=== PATIENT | male | born 1955 | race African-American/Black ===

== ENCOUNTER 2017-08-12 07:06 | Emergency (ER) | payer OTHER ==
[2017-08-12 07:26] VITALS: BP 131/82; PULSE 82; TEMP 98.5; BMI 27.3
--- NOTE | 2017-08-12 08:59 | PDOC ---
History of Present Illness - General Chief Complaint: Cold Symptoms Stated Complaint: COUGHING Time Seen by Provider: 08/12/17 08:26 History Source: Patient Exam Limitations: No Limitations - History of Present Illness Initial Comments: 08/12/17 09:29 62 yr male history of HTN, high cholesterol, kidney stones presents with cough body aches and left flank pain for 3 days. no vomiting or diarrhea pt took nyquil this AM Timing/Duration: reports: getting worse Severity: reports: moderate Past History - Past Medical History Allergies/Adverse Reactions: Allergies Allergy/AdvReac Type Severity Reaction Status Date / Time No Known Allergies Allergy Verified 08/12/17 07:23 Home Medications: Ambulatory Orders Acetaminophen [Tylenol Extra Strength] 800 mg PO PRN PRN 07/03/17 Amlodipine Besylate 10 mg PO DAILY 07/03/17 Cranberry 400 mg PO DAILY 07/03/17 Garlic 1 each PO DAILY 07/03/17 Loratadine [Claritin] 10 mg PO DAILY 07/03/17 Simvastatin 10 mg PO DAILY 07/03/17 COPD: No HTN: Yes Hypercholesterolemia: Yes Kidney Stones: Yes Other medical history: bph - Suicide/Smoking/Psychosocial Hx Smoking Status: No Smoking History: Never smoked Have you smoked in the past 12 months: No Number of Cigarettes Smoked Daily: 0 Information on smoking cessation initiated: No Hx Alcohol Use: No Drug/Substance Use Hx: Yes ([place]) Substance Use Type: None Respiratory Specific PMHX - Complaint Specific PMHX Angina: No Bronchitis: No Pneumonia: No Pulmonary Embolus: No TB (Tuberculosis): No Other History: non smoker Review of Systems - Review of Systems Able to Perform ROS?: Yes Is the patient limited Pakistani proficient: No Constitutional: Yes: Malaise. No: Symptoms Reported HEENTM: No: Symptoms Reported Respiratory: Yes: Cough *Physical Exam - Vital Signs Last Vital Signs Temp Pulse Resp BP Pulse Ox 98.5 F 82 18 131/82 100 08/12/17 07:23 08/12/17 07:23 08/12/17 07:23 08/12/17 07:23 08/12/17 07:23 - Physical Exam General Appearance: Yes: Nourished, Appropriately Dressed HEENT: positive: EOMI, RICK, Normal ENT Inspection, TMs Normal, Pharynx Normal, Rhinorrhea Neck: positive: Supple Respiratory/Chest: positive: Lungs Clear, Normal Breath Sounds. negative: Chest Tender Cardiovascular: positive: Regular Rhythm, Regular Rate Gastrointestinal/Abdominal: positive: Normal Bowel Sounds, Soft Musculoskeletal: positive: Normal Inspection Extremity: positive: Normal Capillary Refill, Normal Inspection, Normal Range of Motion Integumentary: positive: Normal Color, Dry, Warm Neurologic: positive: Fully Oriented, Alert, Normal Mood/Affect, Normal Response , Motor Strength 5/5 ED Treatment Course - RADIOLOGY Radiology Studies Ordered: Category Date Time Status CHEST - PA [RAD] Stat Radiology 08/12/17 08:58 Ordered Medical Decision Making - Medical Decision Making 08/12/17 09:31 cc: cough body aches left flank pain will r/o flu r/o pneumonia r/o kidney stones *DC/Admit/Observation/Transfer Diagnosis at time of Disposition: Viral URI with cough - Discharge Dispostion Disposition: HOME Condition at time of disposition: Good - Referrals Referrals: Karlee Mcarthur MD [Primary Care Provider] - - Patient Instructions Additional Instructions: take ibuprofen 800mg every 8hrs for pain or fever drink at least pleanty of water to stay hydrated follow with your doctor in 1-2 days for follow up - Post Discharge Activity
[2017-08-12 09:21] LABS: URINE APPEARANCE CLEAR; URINE BILIRUBIN NEGATIVE (NEGATIVE); URINE BLOOD NEGATIVE (NEGATIVE); URINE COLOR YELLOW; URINE GLUCOSE (UA) NEGATIVE (NEGATIVE); URINE KETONE NEGATIVE (NEGATIVE); URINE LEUK ESTERASE NEGATIVE (NEGATIVE); URINE NITRITE NEGATIVE (NEGATIVE); URINE UROBILINOGEN NEGATIVE mg/dL (0.2-1.0)
[2017-08-12 09:22] LABS: URINE PROTEIN 1+ (NEGATIVE)
[2017-08-12 09:23] LABS: EPI CELLS RARE /HPF (FEW); URINE HYALINE CAST 6 /lpf; URINE MUCUS MANY
== END 2017-08-12 09:53 | disposition home or self-care (01) ==
LOC: JER 07:06 → JERFT 07:06
DX: J06.9 Acute upper respiratory infection, unspecified (principal); B97.89 Other viral agents as the cause of diseases classified elsewhere; I10 Essential (primary) hypertension; E78.00 Pure hypercholesterolemia, unspecified; N40.0 Benign prostatic hyperplasia without lower urinary tract symptoms; Z87.442 Personal history of urinary calculi
CPT/HCPCS: 71046-TC; 81003; 81015; 87804; 99281-25

== ENCOUNTER 2017-09-27 06:35 | Day surgery (SDC) | payer OTHER ==
[2017-09-16 16:58] VITALS: BMI 25.8
[2017-09-27] MEDS ORDERED: BUPIVACAINE HCL/PF 0.5% (5MG/ML) 10 ML VIAL ONE (07:57)
[2017-09-27] MEDS ORDERED: LIDOCAINE 1%/EPI 1:100000 (20 ML MULTI DOSE VIAL) ONE (07:57)
--- NOTE | 2017-09-27 08:04 | HP ---
Satellite [facility] - Chief Complaint Chief Complaint: left knee pain History Source: Patient - Past Medical History Allergies/Adverse Reactions: Allergies Allergy/AdvReac Type Severity Reaction Status Date / Time No Known Allergies Allergy Verified 09/16/17 16:58 - Current Medications Current Medications: Home Medications Medication Instructions Recorded Acetaminophen [Tylenol Extra 800 mg PO PRN PRN 07/03/17 Strength] Amlodipine Besylate 10 mg PO DAILY 07/03/17 Cranberry 400 mg PO DAILY 07/03/17 Garlic 1 each PO DAILY 07/03/17 Loratadine [Claritin] 10 mg PO DAILY 07/03/17 Simvastatin 10 mg PO DAILY 07/03/17 Satellite Physical Exam - Physical Examination Vital Signs: Vital Signs Period Temp Pulse Resp BP Sys/Tobias Pulse Ox Last 24 Hr 98.2 F 80 18 127/78 Extremities: Other (+ joint line tenderness) Satellite Impression/Plan - Impression/Plan Impression: internal derangement left knee Operative Procedure: arthroscopy left knee Date to be Performed: 09/27/17
[2017-09-27] MEDS ORDERED: BUPIVACAINE HCL/PF 0.5% (5MG/ML) 10 ML VIAL IJ ONE (08:14)
[2017-09-27] MEDS ORDERED: LIDOCAINE 1%/EPI 1:100000 (20 ML MULTI DOSE VIAL) INF ONE (08:14)
[2017-09-27] MEDS ORDERED: MIDAZOLAM HCL 2 MG/2 ML SINGLE DOSE VIAL ONE (08:40)
[2017-09-27] MEDS ORDERED: PROPOFOL 20 ML ONE ×2 (09:02)
[2017-09-27] MEDS ORDERED: LIDOCAINE HCL/PF 2% SDV 5ML VIAL ONE (09:02)
--- NOTE | 2017-09-27 09:34 | OP ---
Operative Note - Note: Operative Date: 09/27/17 ([facility]) Pre-Operative Diagnosis: left knee internal derangement Operation: left knee arthroscopy with PLM Post-Operative Diagnosis: Same as Pre-op Surgeon: Ruben Pelaez Anesthesia: General, Local Specimens Removed: shavings Estimated Blood Loss (mls): 5 Operative Report Dictated: Yes
[2017-09-27] MEDS ORDERED: oxyCODONE HCL 5 MG TABLET PO PRN (09:49)
[2017-09-27] MEDS ORDERED: ONDANSETRON 4 MG/2 ML VIAL IVPUSH PRN (09:49)
[2017-09-27] MEDS ORDERED: PROMETHAZINE HCL 25 MG/1 ML VIAL IVPUSH PRN (09:49)
--- NOTE | 2017-09-27 10:00 | OP ---
DATE OF OPERATION: 09/27/2017 POSTOPERATIVE DIAGNOSIS: Internal derangement, left knee. POSTOPERATIVE DIAGNOSIS: Internal derangement, left knee. PROCEDURE: Arthroscopy, left knee, partial lateral meniscectomy. SURGICAL ATTENDING: Ruben Pelaez MD ANESTHESIA: General with LMA. CLOSURE: Nylon 4-0. COMPLICATIONS: None. CONDITION: To recovery room in stable condition. DESCRIPTION OF PROCEDURE: The patient taken to the operating room on September 27, 2017. General anesthesia with LMA was administered by the anesthesiologist. Left lower extremity was prepped and draped in the usual sterile fashion. The medial and lateral infrapatellar portal sites were infiltrated with 1% Xylocaine with epinephrine. A 15-blade followed by a blunt trocar were used to make both portals. The scope was placed in the lateral infrapatellar portal suprapatellar pouch. The knee was inflated with 1% Xylocaine, 10 mL 0.5% Marcaine, 20 mL of arthroscopic saline which were infused through the scope portal. This was allowed to sit in the knee for 2-3 minutes, then we proceeded with the procedure. The undersurface of the patella and trochlea were visualized to be intact. The medial and lateral gutters were visualized and free of loose bodies. Valgus stress on the knee was performed to allow us to enter the medial compartment. The medial meniscus was visualized, probed, found to be intact. The medial femoral condyle was also found to be intact, as was the medial tibial plateau. At 90 degrees the ACL was visualized, probed, found to be intact. In figure of 4 position, the lateral compartment was entered, lateral meniscus visualized and probed, found to have a complex tear of its posterior horn. This was debrided back to more stable meniscus tissue using a meniscal biter and arthroscopic shaver. Lateral femoral condyle was run and found to be intact, as was the lateral tibial plateau. There were some grade 2 changes which were left in situ on the medial femoral condyle. The knee was irrigated with copious amounts of irrigation. The portals were closed using 4-0 nylon. Prior to closure, 20 mL of 0.5% Marcaine was infused through the scope trocar for postoperative analgesia. Sterile pressure dressing was placed over the knee, patient awakened from anesthesia and transferred to recovery room in stable condition. No complication. Estimated blood loss negligible. Arnulfo [id number]
[2017-09-27] MEDS ORDERED: PROMETHAZINE HCL 25 MG/1 ML VIAL IVPB PRN (10:16)
[2017-09-27 10:43] VITALS: TEMP 97.6
[2017-09-27 15:15] VITALS: BP 130/80; PULSE 70
--- NOTE | 2017-09-30 15:34 | PATH ---
Surgical Pathology Report Patient Name: SHARITA [facility]. Rec. #: [id number] /Age/Gender: 1955 (Age: 62) / M Account: [id number] Location: [facility] SURGICAL Taken: 09/27/2017 Received: 09/27/2017 Reported: 09/30/2017 Physicians: Ruben Pelaez M.D. Specimen(s) Received LEFT KNEE SHAVINGS Clinical History Left knee internal derangement Final Diagnosis KNEE SHAVINGS, LEFT, ARTHROSCOPY: FRAGMENTS OF CARTILAGE, ADIPOSE TISSUE, AND SYNOVIUM. Electronically Signed Daniella Valiente M.D. Gross Description Received in formalin, labeled "left knee shavings," is a 3.0 x 2.4 x 0.2 cm. aggregate of enriquez-yellow soft tissue fragments. A access representative portion is submitted in one cassette. /09/27/2017 saudi/09/27/2017
== END 2017-09-27 12:50 | disposition home or self-care (01) ==
LOC: JASU-SURG 06:35
PROVIDERS: ATTEND Orthopaedic Surgery
PROC: 0SBD4ZZ Excision of Left Knee Joint, Percutaneous Endoscopic Approach (ICD-10-PCS; principal; 2017-09-27 08:45)
DX: M23.8X2 Other internal derangements of left knee (principal)
CPT/HCPCS: 88304-TC; 94760

== ENCOUNTER 2024-06-02 06:26 | Day surgery (SDC) | payer OTHER ==
[2024-06-01 15:08] VITALS: BMI 25.8
[2024-06-02] MEDS ORDERED: CEFOXITIN SODIUM 1 GM IVPB ONE (07:04)
[2024-06-02] MEDS ORDERED: BUPIVACAINE HCL/PF 0.25% (2.5MG/ML) 10 ML VIAL ONE (07:04)
[2024-06-02] MEDS ORDERED: HEPARIN NA (PORCINE) 5,000 UNITS/ML 1ML VIAL ONE (07:04)
[2024-06-02] MEDS ORDERED: PROPOFOL 40 ML ONE (07:52)
[2024-06-02] MEDS ORDERED: ROCURONIUM BROMIDE 50 MG/5 ML SYRINGE ONE (07:52)
[2024-06-02] MEDS ORDERED: MIDAZOLAM HCL 2 MG/2 ML SINGLE DOSE VIAL ONE (07:52)
[2024-06-02] MEDS: ceFAZolin SODIUM 1 GM VIAL IVPB ONE ×2 (08:14)
[2024-06-02] MEDS: BUPIVACAINE HCL/PF 0.25% (2.5MG/ML) 10 ML VIAL IJ ONE ×2 (08:35)
[2024-06-02] MEDS ORDERED: SUGAMMADEX SODIUM 200 MG/2 ML VIAL ONE (09:51)
[2024-06-02] MEDS ORDERED: ACETAMINOPHEN INJECTION 100 ML ONE (09:52)
[2024-06-02] MEDS ORDERED: PROPOFOL 20 ML ONE (10:41)
[2024-06-02] MEDS ORDERED: oxyCODONE HCL 5 MG TABLET PO PRN (12:22)
[2024-06-02] MEDS ORDERED: LACTATED RINGERS SOLUTION 1,000 ML IV SCH (12:30)
[2024-06-02 12:42] VITALS: RESP 18
[2024-06-02] MEDS ORDERED: ONDANSETRON 4 MG/2 ML VIAL ONE (12:51)
[2024-06-02] MEDS: ONDANSETRON 4 MG/2 ML VIAL IVPUSH PRN (12:57)
[2024-06-02] MEDS: ONDANSETRON 4 MG/2 ML VIAL IVPB ONE (12:57)
[2024-06-02] MEDS: FOSAPREPITANT DIMEGLUMINE 150 MG in SODIUM CHLORIDE 145 ML IVPB ONE (19:18)
[2024-06-02] MEDS: oxyCODONE HCL 5 MG TABLET PO PRN (21:17)
[2024-06-03] MEDS ORDERED: ONDANSETRON 4 MG/2 ML VIAL IVPUSH PRN (04:54)
[2024-06-03] MEDS: ACETAMINOPHEN 500 MG TABLET (FP) PO SCH (06:25)
[2024-06-03 07:43] VITALS: BP 122/70; PULSE 69; TEMP 98.1
[2024-06-03 09:28] LABS: BASO % 0.3 % (0-2.0); EOS % 1.5 % (0-4.5); HEMATOCRIT 42.1 % (35.4-49); LYMPH % 44.9 % (8-40); MCHC 33.3 g/dl (32.0-35.9); MEAN PLT VOLUME 8.7 fl (7.5-11.1); MONO % 8.2 % (3.8-10.2); NEUT % 45.1 % (42.8-82.8); PLATELET COUNT 226 10^3/uL (134-434); RBC 4.52 M/mm3 (4.00-5.60); RDW 13.3 % (11.9-15.9); WHITE BLOOD COUNT 7.5 K/mm3 (4.0-10.0)
[2024-06-03 09:51] LABS: POTASSIUM 3.6 mmol/L (3.5-5.1)
[2024-06-03 10:13] LABS: ALBUMIN 3.7 g/dl (3.4-5.0); CALCIUM 9.7 mg/dL (8.5-10.1)
[2024-06-03 10:14] LABS: MAGNESIUM 2.1 mg/dL (1.8-2.4)
[2024-06-03 10:15] LABS: BLOOD UREA NITROGEN 8.6 mg/dL (7-18)
[2024-06-03 10:16] LABS: CREATININE 1.1 mg/dL (0.55-1.3)
== END 2024-06-03 11:06 | disposition home or self-care (01) ==
LOC: SUATTDRO 06:26 → JASUSAT 06:26 → JASU-SURG 06:26 → J8W 18:46 → JASUSAT 06-03 11:06
PROVIDERS: ATTEND Nurse Practitioner Family
PROC: 8E0W4CZ Robotic Assisted Procedure of Trunk Region, Percutaneous Endoscopic Approach (ICD-10-PCS; 2024-06-02)
PROC: 0YU54JZ Supplement Right Inguinal Region with Synthetic Substitute, Percutaneous Endoscopic Approach (ICD-10-PCS; principal; 2024-06-02 08:00)
DX: K40.90 Unilateral inguinal hernia, without obstruction or gangrene, not specified as recurrent (principal)
CPT/HCPCS: 49650; S2900; 36415; 80053; 83735; 85025; 86850; 86900; 86901; 94760; C1781; J0131; J1453; J1644